=== PATIENT | male | born 1935 | race Caucasian/White ===

== ENCOUNTER 2018-01-08 13:12 | Emergency (ER) | payer BC, OTHER ==
--- NOTE | 2018-01-08 13:17 | PDOC ---
History of Present Illness - General Chief Complaint: Chest Pain Stated Complaint: CHEST PAIN Time Seen by Provider: 01/08/18 13:14 - History of Present Illness Initial Comments: 01/08/18 13:18 PMHx: angina, CAD, vertigo, aaa, myelodysplasia, bph bladder wall tumor, emphysema, lung ca s/p radiation therapy PSHx: TURBT, prostate sx, cataract sx, aaa sx, bladder removal with neobladder formation by dr. Ramos from [facility] Allergies: nkda 01/08/18 13:42 82yo male presents ambulatory from home with his son c/o L upper chest discomfort intermittently x 3 days. States the pain comes and goes. No assoc symptoms - no n/v, no cough, no sob, no diaphoresis, no radiation of the pain. Per the son - runs temp of 100 once a week x weeks - currently on abx for urine infection by Dr. Ramos. No chills. States he is not compliant with advair for his copd. Denies abd pain. No n/v/d. States he is constipated and uses miralax. States he saw Dr. Ramos yesterday and is scheduled for a ct of the abd next week because of bleeding from the tip of the penis. Public Employment Mediator is DR. Reji Gutierrez. No abd pain. No arm pain. Denies trauma or rashes. Pain at site of where lung ca was located and where he had radiation therapy over 7m ago. Denies pain with chest wall palpation or movement of arm. Currently cp free. Past History - Past Medical History Allergies/Adverse Reactions: Allergies Allergy/AdvReac Type Severity Reaction Status Date / Time No Known Allergies Allergy Unverified 09/17/16 07:43 Home Medications: Ambulatory Orders Fluticasone/Salmeterol [Advair 250-50 Diskus] 1 each IH BID 09/16/16 Metoprolol Succinate [Toprol Xl -] 25 mg PO DAILY 09/16/16 Ramipril [Altace] 10 mg PO DAILY 09/16/16 Simvastatin [Zocor -] 40 mg PO DAILY 09/16/16 Anemia: No Asthma: No Cancer: Yes (PROSTATE) Cardiac Disorders: Yes (ANGINA) CVA: No COPD: No CHF: No Dementia: No Diabetes: No GI Disorders: No Disorders: No HTN: Yes Hypercholesterolemia: No Liver Disease: No Seizures: No Thyroid Disease: No - Surgical History Abdominal Surgery: Yes (AAA repair) Appendectomy: No Cardiac Surgery: No Cholecystectomy: No Lung Surgery: No Orthopedic Surgery: No - Suicide/Smoking/Psychosocial Hx Smoking History: Former smoker Have you smoked in the past 12 months: No If you are a former smoker, when did you quit?: 30 years Hx Alcohol Use: Yes (with dinner) Substance Use Type: Alcohol Review of Systems - Review of Systems Able to Perform ROS?: Yes Is the patient limited Maltese proficient: No Constitutional: Yes: Fever. No: Chills, Night Sweats HEENTM: No: Blurred Vision, Nose Pain, Nose Congestion, Throat Pain Respiratory: No: Cough, Shortness of Breath Cardiac (ROS): Yes: Chest Pain. No: Edema, Irregular Heart Rate, Lightheadedness, Palpitations, Chest Tightness ABD/GI: Yes: Constipated. No: Diarrhea, Nausea, Vomiting, Abdominal cramping : No: Burning, Dysuria, Hematuria Integumentary: No: Rash Neurological: No: Headache, Numbness, Ataxia All Other Systems: Reviewed and Negative *Physical Exam - Vital Signs 01/08/18 14:13 Selected Entries 01/08/18 13:13 Temperature 98.4 F Pulse Rate 77 Pulse Rhythm [ Regular Left] Pulse Strength Normal [Left] Respiratory 20 Rate Blood Pressure 146/80 Blood Pressure 102 Mean O2 Sat by Pulse 95 Oximetry (%) Oxygen Delivery Room Air Method Weight 66.678 kg - Physical Exam General Appearance: Yes: Nourished, Appropriately Dressed. No: Apparent Distress HEENT: positive: EOMI, CATHERINE, Normal ENT Inspection, Pharynx Normal Neck: positive: Supple. negative: Tender Respiratory/Chest: positive: Crackles (L upper and lower lung cevallos). negative : Respiratory Distress, Rhonchi, Stridor, Wheezing Gastrointestinal/Abdominal: positive: Normal Bowel Sounds, Soft, Other ( urostomy R lower) Musculoskeletal: positive: Normal Inspection. negative: CVA Tenderness Extremity: positive: Normal Capillary Refill, Normal Inspection, Normal Range of Motion. negative: Swelling, Calf Tenderness Integumentary: positive: Normal Color, Dry, Warm Neurologic: positive: harp maker II-XII NML intact, Fully Oriented, Alert, Motor Strength 5/5 Heart Score/ECG Review - History History: Slightly suspicious - Electrocardiogram EKG: Normal - Age Age: >/= 65 - Risk Factors Based on the list above the patient has:: 1-2 risk factors - Troponin Troponin: </= normal limit - Score Heart Score - Total: 3 - ECG Intrepretation Comment:: 01/08/18 13:19 sinus at 72, nl axis, nl interval, no acute st/t wave findings ED Treatment Course - LABORATORY CBC & Chemistry Diagram: 01/08/18 13:30 01/08/18 13:17 Medical Decision Making - Medical Decision Making 01/08/18 13:33 a/p: 82yo male with hx of angina, lung ca, bladder ca with atypical L upper chest discomfort -atypical presentation of ACS -will check trops x 2, ekg, cxr, labs -will r/o pna -will monitor and reassess -no wheezing -no pain at this time coarse bs on L - poss pna vs pulm edema vs copd hx - will check cxr, bnp will give asa 01/08/18 16:35 reassess: trop negative, bnp not elevated, atelectasis, but no pna. no elevated wbc. will continue to monitor and reassess no pain while in the ED no sob vss discussed repeat trop at 6p - if negative stable for d/c to home 01/08/18 16:37 heart score 3 discussed follow up with Dr. Gutierrez as outpt this week pt also has not been complaint with copd meds - discussed follow up with his pulm - will give referral 01/08/18 19:00 repeat trop negative cp free while in the ED no acute changes on tele no events on tele discussed reasons to follow up as an outpt with cardiology and with pulmonary. discussed keeping appt and ct scan for wednesday with dr. ramos. answered all questions. discussed all reasons to return to the ED and need for follow up. stable for d/c to home *DC/Admit/Observation/Transfer Diagnosis at time of Disposition: Atypical chest pain - Discharge Dispostion Disposition: HOME Condition at time of disposition: Stable Admit: No - Referrals Referrals: Chadwick Gutierrez MD [Staff Physician] - Eric Vann MD, MD [Staff Physician] - Jeffery Ramos MD [Staff Physician] - - Patient Instructions Printed Discharge Instructions: DI for Atypical Chest Pain Additional Instructions: Please take all medications as prescribed. Please make an appointment to see your PMD and your fuel cell engineer on Wednesday. Please return to the ED with any further concerns or complaints. Please also make an appointment to see your supervisor brine. Please keep your appointment as scheduled with DR. Ramos and your ct. - Post Discharge Activity - Attestations Physician Attestion: 01/08/18 16:39 I, Dr. Nancy Smith, DO, attest that this document has been prepared under my direction and personally reviewed by me in its entirety. I further attest, that it accurately reflects all work, treatment, procedures and medical decision -making performed by me.
[2018-01-08 13:35] VITALS: TEMP 98.4; BMI 25.2
[2018-01-08 13:46] LABS: BASO % 0.3 % (0-2.0); EOS % 2.1 % (0-4.5); HEMATOCRIT 34.2 % (35.4-49); HEMOGLOBIN 10.7 GM/dl (11.7-16.9); LYMPH % 10.3 % (8-40); MCH 23.5 pg (25.7-33.7); MCHC 31.4 g/dl (32.0-35.9); MEAN PLT VOLUME 9.3 fl (7.5-11.1); NEUT % 83.3 % (42.8-82.8); PLATELET COUNT 118 K/MM3 (134-434); RBC 4.56 M/mm3 (4.00-5.60); RDW 15.6 % (11.9-15.9); WHITE BLOOD COUNT 7.9 K/mm3 (4.0-10.8)
[2018-01-08 13:57] LABS: ALBUMIN 3.5 g/dl (3.5-5.0); ALK PHOS 71 U/L (32-92); ANION GAP 9 (8-16); BILIRUBIN,TOTAL 0.5 mg/dl (0.2-1.0); BLOOD UREA NITROGEN 23 mg/dl (7-18); CALCIUM 8.9 mg/dl (8.4-10.2); CHLORIDE 101 mmol/L (98-107); CO2 25 mmol/L (22-28); CREATININE 1.2 mg/dl (0.6-1.3); GLUCOSE,RANDOM 95 mg/dl (74-106); POTASSIUM 4.6 mmol/L (3.5-5.1); SGOT/AST 29 U/L (10-42); SGPT/ALT 20 U/L (10-40); SODIUM 135 mmol/L (136-145); TOT PROT 7.6 g/dl (6.4-8.3)
[2018-01-08 14:03] LABS: ACTIVATED PTT 30.6 SECONDS (24.0-38.9)
[2018-01-08 14:07] LABS: INR 1.21 (0.82-1.09); PROTHROMBIN TIME (PATIENT) 13.5 SEC (10.2-13.0)
[2018-01-08 16:25] VITALS: BP 132/63; PULSE 64
[2018-01-08] MEDS ORDERED: ASPIRIN 81 MG CHEWABLE TABLETS PO ONE (16:35)
[2018-01-08] MEDS ORDERED: ASPIRIN 81 MG CHEWABLE TABLETS ONE ×2 (16:51→17:19)
--- NOTE | 2018-01-10 12:33 | EKG ---
Test Reason : Blood Pressure : / mmHG Vent. Rate : 072 BPM Atrial Rate : 072 BPM P-R Int : 122 ms QRS Dur : 084 ms QT Int : 392 ms P-R-T Axes : 055 030 043 degrees QTc Int : 429 ms NORMAL SINUS RHYTHM NORMAL ECG WHEN COMPARED WITH ECG OF 16-MAY-2004 07:54, PREMATURE VENTRICULAR COMPLEXES ARE NO LONGER PRESENT Confirmed by OLMAN BAUMANN MD ([id number]) on 01/10/2018 12:33:28 PM Referred By: ENRIQUE CAMPOS Confirmed By:OLMAN BAUMANN MD
== END 2018-01-08 19:12 | disposition home or self-care (01) ==
LOC: FER 13:12
DX: R07.89 Other chest pain (principal); Z85.118 Personal history of other malignant neoplasm of bronchus and lung; Z85.51 Personal history of malignant neoplasm of bladder; Z85.89 Personal history of malignant neoplasm of other organs and systems; I10 Essential (primary) hypertension
CPT/HCPCS: 36415; 71046-TC-FY; 80053; 82550; 83735; 83880; 84484; 85025; 85610; 85730; 93005; 99283-25